=== PATIENT | female | born 1970 | race Caucasian/White ===

== ENCOUNTER 2022-09-08 10:32 | Day surgery (SDC) | payer OTHER ==
[~2022-09-08] VITALS: Ht 163.8 cm; Wt 87.5 kg
[~2022-09-08 10:32] MED LIST: HYDR-3490 PO; LISI20TA33 PO; NS 1,000 ML IV ONE
[2022-09-08 13:59] VITALS: BP 132/72; O2SAT 96
== END 2022-09-08 14:01 | disposition home or self-care (01) ==
LOC: M OPP 10:32
PROVIDERS: ATTEND Internal Medicine Gastroenterology
DX: Z12.11 Encounter for screening for malignant neoplasm of colon (principal); K63.5 Polyp of colon; K64.0 First degree hemorrhoids; K57.30 Diverticulosis of large intestine without perforation or abscess without bleeding; Z79.899 Other long term (current) drug therapy